=== PATIENT | male | born 1950 | race Caucasian/White ===

== ENCOUNTER 2017-01-05 18:37 | Emergency (ER) | payer MEDICAID ==
[2017-01-05 19:13] LABS: BASOPHILS 0.3 % (0.0-2.0); EOSINOPHILS 3.9 % (0-7); HEMATOCRIT 42.5 % (42.0-54.0); HEMOGLOBIN 14.9 g/dL (13.5-17.5); LYMPHOCYTES 37.7 % (15-50); MCH 33.9 pg (26.0-34.0); MCHC 35.1 g/dL (31.0-37.0); MCV 96.6 fL (80.0-100.0); MEAN PLATELET VOLUME 9.7 fL (7.4-10.4); MONOCYTES 10.6 % (2-11); NEUTROPHILS 47.5 % (40-80); PLATELET COUNT 199 10x3/uL (130-400); RDW 11.5 % (11.5-14.5); WBC 7.2 10x3/uL (4.8-10.8)
[2017-01-05 19:39] LABS: ALBUMIN 3.6 g/dL (3.4-5.0); ALKALINE PHOSPHATASE 68 U/L (46-116); ALT (SGPT) 83 U/L (10-68); CALC OSMOLALITY 258 mosm/kg (275-300); CALCIUM 8.5 mg/dL (8.5-10.1); CARBON DIOXIDE 23.6 mmol/L (21.0-32.0); CHLORIDE - SERUM 95 mmol/L (98-107); CREATININE - SERUM 0.9 mg/dL (0.6-1.3); GLUCOSE 76 mg/dL (74-106); POTASSIUM - SERUM 4.3 mmol/L (3.5-5.1); PROTEIN - SERUM 7.3 g/dL (6.4-8.2); SODIUM 130 mmol/L (136-145); UREA NITROGEN 9 mg/dL (7-18); eGFR NON AFRICAN AMERICAN 90 mL/min (90-120)
[2017-01-05 19:56] LABS: MAGNESIUM - SERUM 1.6 mg/dL (1.8-2.4)
[2017-01-05 19:58] LABS: CREATINE KINASE 519 UL (21-232)
[2017-01-05 19:59] LABS: CKMB 23.8 U/L (0.0-3.6); TROPONIN-I 0.002 ng/mL (0.000-0.060)
[2017-01-05 22:38] LABS: APPEARANCE CLEAR (CLEAR); BILIRUBIN NEGATIVE (NEGATIVE); COLOR YELLOW (YELLOW); GLUCOSE NEGATIVE (NEGATIVE); KETONE NEGATIVE (NEGATIVE); LEUKOCYTE ESTERASE NEGATIVE (NEGATIVE); NITRITE NEGATIVE (NEGATIVE); PROTEIN NEGATIVE (NEGATIVE); SPECIFIC GRAVITY 1.015 (1.005-1.020); UROBILINOGEN NORMAL (NORMAL)
[2017-01-05 22:45] LABS: UDS - AMPHET NEGATIVE QUAL (NEGATIVE); UDS - BARB NEGATIVE QUAL (NEGATIVE); UDS - BENZO NEGATIVE QUAL (NEGATIVE); UDS - COCAINE NEGATIVE QUAL (NEGATIVE); UDS - METH NEGATIVE QUAL (NEGATIVE); UDS - OPIATE NEGATIVE QUAL (NEGATIVE); UDS - PCP NEGATIVE QUAL (NEGATIVE); UDS - THC NEGATIVE QUAL (NEGATIVE)
== END 2017-01-05 23:00 | disposition home or self-care (01) ==
LOC: D.ER 18:37
PROVIDERS: Family Medicine; Nurse Practitioner Family
DX: F10.129 Alcohol abuse with intoxication, unspecified (principal); R55 Syncope and collapse; I10 Essential (primary) hypertension; Z95.0 Presence of cardiac pacemaker

== ENCOUNTER 2018-03-25 18:46 | Emergency (ER) | payer MEDICARE, MEDICAID ==
[~2018-03-25] VITALS: Ht 182.9 cm; Wt 90.9 kg
[2018-03-25 18:51] VITALS: Ht 182.9 cm; Wt 90.9 kg
[2018-03-25] MEDS ORDERED: BETAPACE 80 MG80 MG PO (18:53)
[2018-03-25] MEDS ORDERED: LISINOPRIL5 MG PO (18:53)
[2018-03-25 19:17] LABS: BASOPHILS 0.4 % (0-2); EOSINOPHILS 2.6 % (0-7); HEMATOCRIT 35.5 % (42.0-54.0); HEMOGLOBIN 12.7 g/dL (13.5-17.5); IMMATURE GRANULOCYTES 0.1 % (0-5); LYMPHOCYTES 45.1 % (15-50); MCH 34.6 pg (26.0-34.0); MCHC 35.8 g/dL (31.0-37.0); MCV 96.7 fL (80.0-100.0); MEAN PLATELET VOLUME 9.4 fL (7.4-10.4); MONOCYTES 8.7 % (2-11); NEUTROPHILS 43.1 % (40-80); PLATELET COUNT 201 10x3/uL (130-400); RBC 3.67 10x6/uL (4.20-6.10); RDW 12.2 % (11.5-14.5); WBC 6.9 10x3/uL (4.8-10.8)
[2018-03-25 19:29] LABS: ALBUMIN 3.7 g/dL (3.4-5.0); ALKALINE PHOSPHATASE 73 U/L (46-116); ALT (SGPT) 58 U/L (10-68); BILIRUBIN - TOTAL 1.09 mg/dL (0.2-1.3); CALC OSMOLALITY 255 mosm/kg (275-300); CALCIUM 8.8 mg/dL (8.5-10.1); CARBON DIOXIDE 22.8 mmol/L (21.0-32.0); CHLORIDE - SERUM 93 mmol/L (98-107); GLUCOSE 91 mg/dL (74-106); PROTEIN - SERUM 7.5 g/dL (6.4-8.2); SODIUM 127 mmol/L (136-145); UREA NITROGEN 15 mg/dL (7-18); eGFR NON AFRICAN AMERICAN 80 mL/min (90-120)
[2018-03-25 20:14] LABS: TROPONIN-I < 0.017 ng/mL (0.000-0.060)
[2018-03-25 20:57] LABS: APPEARANCE CLEAR (CLEAR); BILIRUBIN NEGATIVE (NEGATIVE); COLOR YELLOW (YELLOW); GLUCOSE NEGATIVE (NEGATIVE); KETONE NEGATIVE (NEGATIVE); NITRITE NEGATIVE (NEGATIVE); PROTEIN NEGATIVE (NEGATIVE); UROBILINOGEN NORMAL (NORMAL)
[2018-03-25 21:03] LABS: UDS - AMPHET NEGATIVE QUAL (NEGATIVE); UDS - BARB NEGATIVE QUAL (NEGATIVE); UDS - BENZO NEGATIVE QUAL (NEGATIVE); UDS - COCAINE NEGATIVE QUAL (NEGATIVE); UDS - OPIATE NEGATIVE QUAL (NEGATIVE); UDS - PCP NEGATIVE QUAL (NEGATIVE); UDS - THC POSITIVE QUAL (NEGATIVE)
[2018-03-26 05:41] VITALS: BP 136/88
== END 2018-03-26 05:41 | disposition home or self-care (01) ==
LOC: D.ER 18:46
PROVIDERS: Emergency Medicine; Family Medicine
DX: F10.10 Alcohol abuse, uncomplicated (principal); R55 Syncope and collapse; F17.200 Nicotine dependence, unspecified, uncomplicated

== ENCOUNTER 2018-03-28 14:46 | Emergency (ER) | payer MEDICARE ==
[~2018-03-28] VITALS: Ht 182.9 cm; Wt 90.9 kg
[~2018-03-28 14:46] MED LIST: BETAPACE 80 MG80 MG PO; LISINOPRIL5 MG PO
[2018-03-28 14:52] VITALS: Ht 182.9 cm; Wt 90.9 kg
[2018-03-28] MEDS ORDERED: GABAPENTIN100 MG PO (14:58)
[2018-03-28 15:51] LABS: BASOPHILS 0.5 % (0-2); EOSINOPHILS 2.4 % (0-7); HEMATOCRIT 36.7 % (42.0-54.0); HEMOGLOBIN 13.2 g/dL (13.5-17.5); IMMATURE GRANULOCYTES 0.2 % (0-5); MCH 34.9 pg (26.0-34.0); MCV 97.1 fL (80.0-100.0); MEAN PLATELET VOLUME 9.4 fL (7.4-10.4); MONOCYTES 7.5 % (2-11); NEUTROPHILS 60.4 % (40-80); RBC 3.78 10x6/uL (4.20-6.10); RDW 12.3 % (11.5-14.5); WBC 6.4 10x3/uL (4.8-10.8)
[2018-03-28 15:56] LABS: PLATELET COUNT 251 10x3/uL (130-400)
[2018-03-28 16:01] LABS: ANION GAP 19.3 mmol/L (8-16); BILIRUBIN - TOTAL 1.16 mg/dL (0.2-1.3); CALCIUM 9.4 mg/dL (8.5-10.1); CARBON DIOXIDE 22.6 mmol/L (21.0-32.0); CREATININE - SERUM 1.4 mg/dL (0.6-1.3); POTASSIUM - SERUM 4.9 mmol/L (3.5-5.1); PROTEIN - SERUM 7.7 g/dL (6.4-8.2)
[2018-03-28 18:03] VITALS: BP 136/86
== END 2018-03-28 17:50 | disposition home or self-care (01) ==
LOC: D.ER 14:46
PROVIDERS: Family Medicine
DX: T67.8XXA Other effects of heat and light, initial encounter (principal); X58.XXXA Exposure to other specified factors, initial encounter; Y93.89 Activity, other specified; Y92.89 Other specified places as the place of occurrence of the external cause; I10 Essential (primary) hypertension; Z95.0 Presence of cardiac pacemaker